=== PATIENT | female | born 1945 | race Caucasian/White ===

== ENCOUNTER 2019-06-15 10:53 | Outpatient (CLI) | payer MEDICARE, OTHER, SELFPAY ==
--- NOTE | 2019-06-15 11:15 | MM_ITS ---
WS: [id number] BILATERAL SCREENING DIGITAL MAMMOGRAM WITH CAD HISTORY: SCREENING COMPARISON: 05/24/2018 Bilateral CC and MLO views submitted. Computer aided detection analyzed. Breast composition: There are scattered areas of fibroglandular density. No suspicious masses, microc alcifications or architectural distortion. Benign calcifications in each breast. MM/[place] [id number] IMPRESSION: BI-RADS: 2-Benign FOLLOW UP: 1 Year Follow-up
== END 2019-06-15 10:54 | disposition home or self-care (01) ==
LOC: RADSHAW 11:03
PROVIDERS: Family Provider Family Medicine; PCP Family Medicine; Visit Provider Family Medicine
DX: Z12.31 Encounter for screening mammogram for malignant neoplasm of breast (principal)
CPT/HCPCS: 77067

== ENCOUNTER 2019-09-15 13:48 | Emergency (ER) | payer MEDICARE, OTHER, SELFPAY ==
[2019-09-15 14:00] VITALS: BP 146/78; PULSE 79; RESP 14; TEMP 36.9; O2SAT 96; BMI 26.7
--- NOTE | 2019-09-15 14:29 | XRR_ITS ---
PROCEDURE INFORMATION: Exam: XR Left Ribs with PA Chest, 3 Views Exam date and time: 09/15/2019 2:30 PM Age: 74 years old Clinical indication: Injury or trauma; Fall; Initial encounter; Rib area, left side; Blunt trauma; Additional info: Fall, rib pain TECHNIQUE: Imaging protocol: XR Left ribs 3 views with PA chest. COMPARISON: No relevant prior studies available. FINDINGS: Lungs: Unremarkable. No consolidation. Pleural space: Unremarkable. No pleural effusion. No pneumothorax. Heart/Mediastinum: Unremarkable. No cardiomegaly. Vasculature: There is calcified plaque in the thoracic aorta which is tortuous. Bones/joints: There is contour abnormality at the posterolateral aspect of the left 4th through 6th ribs with fracture of unknown chronicity. XR/XR ribs LT mn 3V w CXR1V [id number] IMPRESSION: There is contour abnormality at the posterolateral aspect of the left 4th through 6th ribs with fracture of unknown chronicity.
--- NOTE | 2019-09-15 14:29 | ED_ITS ---
HPI - Fall General: Chief Complaint: Fall Stated Complaint: rib pain left side Time Seen by Provider: 09/15/19 14:23 History of Present Illness: HPI Narrative: Patient is a 74 year old female - she is here today due to left rib pain after a fall three days ago. She slipped on some steps in her utility room and landed on her left side. She hit her head but says that feels fine. She has pain with breathing, but denies shortness of breath and she doesn't have pain with movement. MD complaint: fall Onset (ago): day(s) (2) Fall from: down stairs (#) (2) Fall witnessed: no Place fall occurred: home Loss of consciousness: None Prolonged down time: no Symptoms prior to fall: chest pain Context: tripped/slipped Location of injury: chest Severity: moderate Quality: sharp Associated symptoms-after fall: Denies abdominal pain, chest pain, confusion, difficulty walking, headache(s), hematuria, lightheadedness, neck pain, numbness, short of breath, vertigo or weakness Review of Systems General: Reports: 10 or more systems reviewed and unremarkable except in HPI and below Const: Denies: fever(s), chills or body aches Eyes: Denies: change in vision ENMT: Denies: odynophagia Card: Denies: chest pain or lightheadedness Resp: Reports: pain on inspiration; Denies: dyspnea GI: Denies: abdominal pain : Denies: hematuria Musc: Denies: neck pain, extremity pain or joint pain Neuro: Denies: headache(s), difficulty walking, vertigo or confusion PFS ED PFSH: Social History Smoking and tobacco status: former smoker Physical Exam Const: COMMON NORMALS: no acute distress, average body habitus, patient oriented x3, healthy appearing and alert HENMT: COMMON NORMALS: normocephalic HEAD & SCALP: normal to inspection and normocephalic FACE & SINUS: normal facial exam Eye: GENERAL EYE: appearance normal, both eyes and all related structures Neck/C-Spine: COMMON NORMALS: full ROM, supple and no JVD GENERAL: Yes trachea midline Lymph: LYMPHATIC: no lymphadenopathy noted Chest: CHEST: No localized rib tenderness with anteroposterior compression, No Sternal flail present and Yes tenderness rib (left lateral axiallary line, superior) Resp: COMMON NORMALS: normal respiratory effort, No retractions, No use of accessory muscles, clear to auscultation bilaterally and percussion normal AUSCULTATION: clear to auscultation bilaterally PERCUSSION: percussion normal Cardio: COMMON NORMALS: no JVD, regular rate, regular rhythm and No murmurs present (Cardio) RATE: regular rate RHYTHM: regular rhythm GI: COMMON NORMALS: Normal to inspection, nondistended, normoactive bowel sounds present, Soft to palpation and non-tender PALPATION: Yes Soft to palpation Back/Pelvis: COMMON NORMALS: thoracic and lumbar spine normal to inspection Extremity: COMMON NORMALS: normal to inspection and full ROM Neuro: COMMON NORMALS: patient oriented x3 SENSORIUM/ORIENTATION: Yes alert Skin: COMMON NORMALS: no rashes or lesions noted GENERAL SKIN EXAM: no rashes or lesions noted Course ED course: Patient with rib pain after a fall. No difficulty breathing, but pain with inspiration. CXR without pneumothorax - does show at least 3 left sided rib fractures. Patient healthy at baseline - wishes to go home. Outpatient follow up with PCP. Return precautions discussed. Vital Signs: Vital signs: Vital Signs Temperature 98.5 F 09/15/19 14:00 Pulse Rate 77 09/15/19 15:50 Respiratory Rate 16 09/15/19 15:50 Blood Pressure 125/87 09/15/19 15:50 Pulse Oximetry 96 09/15/19 15:50 MDM - Fall MDM Narrative: Medical decision making narrative: Rib pain, fall, suspect fractures. Rule out pneumothorax, contusion Discharge Plan Discharge Patient Disposition: Home, Self-Care Clinical Impression: Fracture of rib of left side Qualifiers: Encounter type: initial encounter Rib fracture type: multiple ribs Fracture type: closed Qualified Code(s): S22.42XA - Multiple fractures of ribs, left side, initial encounter for closed fracture Condition: Stable Prescriptions: No Action alendronate 70 mg tablet 70 mg PO Q7D RF: 0 Tylenol Extra Strength 500 mg Tablet See Rx Instructions .ROUTE .COMPLEX RF: 0 carvedilol 3.125 mg tablet 6.25 mg PO DAILY RF: 0 rosuvastatin 20 mg tablet 20 mg PO DAILY RF: 0 28 mg iron- 800 mcg Tablet 1 tab PO DAILY RF: 0 Discharge Orders: Discharge Order (Routine); Ordered 09/15/19 Ordered By: Naomie Fraga Referrals: Suellen Galeano MD [Primary Care Provider] - Discharge Diet: Advance as tolerated Discharge Activity: Limit activity as instructed Patient Instructions: Rib Fracture (ED) Activity Restrictions/Additional Instructions: Limit lifting. Make sure to take deep breathes and cough to keep your lungs clear and open. Return to the ED if worsening pain, trouble breathing, feeling short of breath, fever or any other new symptoms. Discharge Date/Time: 09/15/19 15:50 Coding Level of Care Code ED Ornamental Painter for Chg Fwd Exam Comprehensive
[2019-09-15 15:50] VITALS: BP 125/87; PULSE 77; RESP 16; O2SAT 96
== END 2019-09-15 15:50 | disposition home or self-care (01) ==
PROVIDERS: Emergency Provider Emergency Medicine; PCP Family Medicine
DX: S22.42XA Multiple fractures of ribs, left side, initial encounter for closed fracture (principal); W01.198A Fall on same level from slipping, tripping and stumbling with subsequent striking against other object, initial encounter; Z87.891 Personal history of nicotine dependence
CPT/HCPCS: 12345; 71101; 99281; 99282

== ENCOUNTER 2019-12-17 08:47 | Outpatient (CLI) | payer MEDICARE, OTHER, SELFPAY ==
--- NOTE | 2019-12-17 09:14 | XR_ITS ---
WS: [id number] SCREENING DEXA SCAN [employer] CLINICAL INFORMATION: ASYMTOMATIC MENOPAUSAL STATE, AGE RELATED OSTEOPOROSIS WITHO COMPARISON: 018 FINDINGS: The L1-L4 bone mineral density measures 0.830 g/cm2. This corresponds to a T score score of -2.9 and Z score of -1.4. Left femoral neck bone mineral density measures 0.750 g/cm2. This corresponds to a T score of -2.0 an d Z score of -0.4. Right femoral neck bone mineral density measures 0.719 g/cm2. This corresponds to a T score -2.3of an d Z score of -0.7. Mean femoral neck bone mineral density measures 0.734 g/cm2. This corresponds to a T score of -2.2 an d Z score of -0.6. XR/XR DEXA axial skeleton* [id number] IMPRESSION: Osteoporosis Patient's FRAX calculated 10 year probability for major osteoporotic fracture i s 22.4 % and osteoporotic hip fracture is 6.1%.
== END 2019-12-17 08:48 | disposition home or self-care (01) ==
LOC: RADWPI 08:51
PROVIDERS: PCP Family Medicine; Visit Provider Family Medicine
DX: Z78.0 Asymptomatic menopausal state (principal); M81.0 Age-related osteoporosis without current pathological fracture
CPT/HCPCS: 77080

== ENCOUNTER 2020-09-13 11:33 | Emergency (ER) | payer MEDICARE, OTHER, SELFPAY ==
[2020-09-13 11:35] VITALS: BP 187/98; PULSE 75; RESP 16; TEMP 36.6; O2SAT 97; BMI 25.9
--- NOTE | 2020-09-13 11:49 | ED_ITS ---
HPI - Extremity Problem General: Chief complaint: Extremity Problem,Nontraumatic Stated complaint: RIGHT KNEE PAIN Time Seen by Provider: 09/13/20 11:36 Source: patient Mode of arrival: ambulatory Limitations: no limitations History of Present Illness: HPI Narrative: Patient is a 75-year-old female with a history of osteoporosis and hypertension who [facility] with right knee pain and swelling of 1 weeks duration. Patient states that she woke up 7 days ago the pain, started in the right popliteal fossa and then gradually radiated to the anterior part of her knee and she has significant swelling of the knee. She denies any trauma to the knee. She has been managing it with ice and [id number] analgesics. Because her symptoms are not getting any better she is here to be evaluated. MD Complaint: joint swelling and joint pain Onset (ago): week(s) (1) Pain Consistency: constant Location: right and knee Quality: aching Radiation: proximal Relieving factors: nothing Exacerbating factors: range of motion and weight bearing Associated symptoms: Reports arthralgias; Deny chest pain, fever(s), myalgias, rash or short of breath Review of Systems General: Reports: 10 or more systems reviewed and unremarkable except in HPI and below Const: Denies: fever(s) Card: Denies: chest pain Skin/Breast: Denies: rash PFS ED PFSH: Social History Smoking and tobacco status: former smoker Physical Exam Const: COMMON NORMALS: no acute distress, average body habitus, patient oriented x3, no limitations, healthy appearing, alert and well nourished Neck/C-Spine: COMMON NORMALS: no JVD Resp: COMMON NORMALS: normal respiratory effort, No retractions, No use of accessory muscles, clear to auscultation bilaterally and percussion normal AUSCULTATION: clear to auscultation bilaterally PERCUSSION: percussion normal Cardio: COMMON NORMALS: no JVD, regular rate, regular rhythm, S1 normal heart sound present, S2 normal heart sound present, No gallops present (Cardio), No clicks present (Cardio), No murmurs present (Cardio), No rub (Cardio) and Peripheral pulses 2+ throughout RATE: regular rate RHYTHM: regular rhythm HEART SOUNDS: S1 normal heart sound present and S2 normal heart sound present PERIPHERAL PULSES: Peripheral pulses 2+ throughout GI: COMMON NORMALS: Normal to inspection, nondistended, normoactive bowel sounds present, Soft to palpation, non-tender, No hepatosplenomegaly present, no masses and no bruits PALPATION: Yes Soft to palpation and Yes No hepatosplenomegaly present Extremity: COMMON NORMALS: normal to inspection, full ROM, capillary refill normal, no calf tenderness and no pedal edema RIGHT LOWER EXTREMITY: Yes knee joint Right knee: Yes inspection (Obvious swelling to the superior lateral portion of the knee), Yes palpation (Right knee effusion noted, mildly tender. Mild warmth, no erythema), Yes ROM (Extension of the knee limited) and Yes neurovascular exam (Intact) Neuro: COMMON NORMALS: patient oriented x3 SENSORIUM/ORIENTATION: Yes alert Procedures Bursa Procedures Time Out Performed: Yes Side of body: right Site of Procedure: other (suprapatellar) XRAY Obtained: normal Antisepsis Used: Povidone-Iodine1% Local Anesthetic: lidocaine 1% Amount of anesthesia used (mL): 2 Fluid obtained (mL): 44 Fluid Type: clear Medication Injected: Methylprednisolone Acetate Amount of medication used (mg): 40 Lidocaine Added to Medication: Yes Patient Tolerated Procedure: well Complications: none Course Vital Signs: Vital signs: Vital Signs Temperature 98.0 F 09/13/20 12:52 Pulse Rate 69 09/13/20 12:52 Respiratory Rate 18 09/13/20 12:52 Blood Pressure 156/87 09/13/20 12:52 Pulse Oximetry 94 09/13/20 12:52 MDM - Extremity (Nontraumatic) MDM Narrative: Medical decision making narrative: 75-year-old female patient who presents to the emergency department with symptoms consistent with right suprapatellar bursitis. X-ray was negative for acute findings, 44 ml of serous fluid was drained from the supra patella bursa and she was given none injection of Depo-Medrol and lidocaine into the bursa and knee joint. She will follow-up with her primary care provider. Medical Records: Attestation: I reviewed the patient's medical records. Imaging Data^: Xray Ortho: Attestation: I personally reviewed and interpreted this imaging study as follows: Radiologist's impression: [facility] [address], [place] [address]TWze ReportSigned Patient: Sandra Rivas #: [id number]: [id number]#:[id number]/Sex: 75 / FADM Date: 09/13/20Loc: ERRoom/Bed:Attending Dr: Ordering Provider/Ordering MD: Ricky Matos MD, [facility] [place] Date of Service: 09/13/20 Procedure(s): XR knee RT 3V* [id number] Accession Number(s): [id number] Report Number: [id number] PROCEDURE INFORMATION: Exam: XR Right Knee Exam date and time: 09/13/2020 11:52 AM Age: 75 years old Clinical indication: Pain; Knee; Right; Additional info: Knee pain and swelling TECHNIQUE: Imaging protocol: XR Right knee. Views: 3 views. COMPARISON: No relevant prior studies available. FINDINGS: Bones/joints: Small suprapatellar effusion. Soft tissues: Soft tissue swelling about the knee. XR/XR knee RT 3V* [id number] IMPRESSION: 1. Negative for fracture or dislocation 2. Small suprapatellar effusion. 3. Soft tissue swelling about the knee. Dictated By:Alphonso Prajapati MDSigned By:Alphonso Prajapati MDSigned Date/Time:09/13/20 1223DD/ 1222 Discharge Plan Discharge Patient Disposition: Home Clinical Impression: Suprapatellar bursitis Qualifiers: Laterality: right Qualified Code(s): M70.51 - Other bursitis of knee, right knee Condition: Stable Prescriptions: Continued alendronate 70 mg tablet 70 mg PO Q7D RF: 0 Tylenol Extra Strength 500 mg Tablet See Rx Instructions .ROUTE .COMPLEX RF: 0 carvedilol 3.125 mg tablet 6.25 mg PO DAILY RF: 0 rosuvastatin 20 mg tablet 20 mg PO DAILY RF: 0 28 mg iron- 800 mcg Tablet 1 tab PO DAILY RF: 0 Discharge Orders: Discharge ED (Routine); Ordered 09/13/20 Ordered By: Ricky Matos Referrals: Suellen Galeano MD [Primary Care Provider] - 1-3 days Discharge Diet: Usual diet Discharge Activity: Increase activity as tolerated Patient Instructions: Knee Bursitis (ED) Activity Restrictions/Additional Instructions: Return for any new or worsening symptoms. Follow-up with your primary care provider within 3 days. Continue to ice your knee as needed and take Tylenol or ibuprofen as needed. Coding Level of Care Code ED Trestle Mainternance Laborer for Maki Fwd Exam Detailed
[2020-09-13 12:06] VITALS: BP 151/85; PULSE 70; RESP 16; O2SAT 96
[2020-09-13 12:52] VITALS: BP 156/87; PULSE 69; RESP 18; TEMP 36.7; O2SAT 94
[2020-09-13 14:15] LABS: Crystals, Fluid See Path Consult
== END 2020-09-13 12:52 | disposition home or self-care (01) ==
PROVIDERS: Emergency Provider Family Medicine; PCP Family Medicine
DX: M70.51 Other bursitis of knee, right knee (principal); Z87.891 Personal history of nicotine dependence
CPT/HCPCS: 20610; 73562; 80500; 99283

== ENCOUNTER 2020-11-14 09:00 | Outpatient (CLI) | payer MEDICARE, OTHER, SELFPAY ==
--- NOTE | 2020-11-14 09:30 | MR_ITS ---
WS: [id number] MRI RIGHT KNEE HISTORY: PAIN IN RIGHT KNEE;SWELLING;PAIN COMPARISON: Radiographs 09/13/2020 Anterior cruciate ligament: Small amount of fluid surrounding the ACL but no tear. Posterior cruciate ligament: Intact. Medial collateral ligament: Increased T2 signal both sides of the MCL. No tear. Posterior lateral corner structures: Mild thickening and increased signal in the proximal popliteus t endon. The remaining structures are negative. Medial menisci: Blunting of the free edge of the posterior horn. Anterior horn is normal. Lateral meniscus: Intact. Normal signal, size and shape. Extensor mechanism: Distal quadriceps tendon and patellar tendons are intact. Fluid and soft tissue: Moderate to large suprapatellar joint effusion. Soft tissue edema surrounding the knee. . Tiny amount of fluid consistent with a Kline's cyst. Osseous and articular structures: Patellofemoral compartment: Mild diffuse thinning of the cartilage. Small amount of subchondral edema in the lateral facet. Medial compartment: Mild narrowing of the medial compartment. Moderate thinning and fissuring of the cartilage along the weightbearing surface. Full-thickness defect in the cartilage of the femoral cond yle. Very small amount of subchondral edema. Lateral compartment: Moderate diffuse thinning and fissuring of the cartilage. Chondral cyst along th e tibial plateau measures 10 mm. MR/MR knee RT wo con* [id number] IMPRESSION: 1. Large suprapatellar joint effusion with a small amount of edema surrounding the knee. 2. Moderate chondromalacia involving the patellofemoral joint and the medial a nd lateral compartments. Largest cartilage defect involves the weightbearing lozada rface of the medial femoral condyle. 3. Mild popliteus tendinopathy. 4. Mild MCL sprain. 5. Suspect tear involving the free edge of the posterior horn medial meniscus.
== END 2020-11-14 09:01 | disposition home or self-care (01) ==
LOC: RADSHAW 09:07
PROVIDERS: PCP Family Medicine; Visit Provider Family Medicine
DX: M25.561 Pain in right knee (principal); M79.89 Other specified soft tissue disorders; M25.461 Effusion, right knee; S83.411A Sprain of medial collateral ligament of right knee, initial encounter; X58.XXXA Exposure to other specified factors, initial encounter
CPT/HCPCS: 73721

== ENCOUNTER 2020-12-20 11:48 | Emergency (ER) | payer MEDICARE, OTHER, SELFPAY ==
--- NOTE | 2020-12-20 11:55 | ED_ITS ---
HPI - General Adult General: Chief complaint: Extremity Problem,Nontraumatic Stated complaint: RIGHT KNEE PAIN Time Seen by Provider: 12/20/20 11:50 History of Present Illness: HPI narrative: 75F w/ hx of chronic R knee swelling presenting for worsening swelling. Patient was recentyl seen by DR. Marie and was told that she needs a knee surgery. Patient requests for a second opinion. Patient reports that she is very active on her knees (including daily activities in gardening and mowing). She has tried brace/topical medicine without any improvement. Denies any fever/chill, IVDU, hx of knee infections, or pain with knee movement. Onset:Chronic Duration:Since july Location:R knee Severity:mild Review of Systems Narrative: Constitutional: No fever, no chills. HEENT: No vision changes CV: No chest pain, no palpitations PULM: no cough, no dyspnea. GI: No abdominal pain, no N/V/D. : No dysuria MSKEL: No muscle pain, +R knee swelling and decreased ROM SKIN: No new rashes, no lesions. NEURO: No headache, no focal weakness. HEME: No visible bruises PSYCH: Normal mood PFSH ED PFSH: Social History Smoking and tobacco status: former smoker Physical Exam Narrative: EXAM NARRATIVE: Head: Atraumatic Eyes: PERRL, conjunctiva without injection ENT: Mucous membrane moist NECK: Supple, ROM intact LUNGS: LCTAB, no crackles/rhonchi CV: RRR ABDOMEN: Soft, nontender in all quadrants EXTREMITY: Normal ROM of the R knee, +mild R knee swelling without any overlying erythema/warmth/tenderness to palpation. +able to bear weight over the R knee SKIN: No rash or erythema NEURO: Awake and alert, no focal motor deficits PSYCH: Normal mood and affect Course Vital Signs: Vital signs: Vital Signs Temperature 97.2 F L 12/20/20 11:56 Pulse Rate 67 12/20/20 12:34 Respiratory Rate 20 H 12/20/20 12:34 Blood Pressure 125/82 12/20/20 12:34 Pulse Oximetry 96 12/20/20 12:34 MDM - General Adult MDM Narrative: Medical decision making narrative: 75F presenting to the ED for evaluation for ongoing R knee swelling. No suspicion for septic joint, DVT, or acute injuries or fracture. XR confirmed chronic changes. Given follow up with orthopedics and new PCP as patient is not happy with existing provider. Disposition: Discharge. Patient given SRP for any worsening pain, swelling, fever/chill, decreased ROM or any new or concerning issues. Imaging Data^: Other Xray: Radiologist's impression: [address] [address]MIdp ReportSigned Patient: Sandra Rivas #: [id number]: [id number]#:[id number]/Sex: 75 / FADM Date: 12/20/20Loc: ERRoom/Bed:Attending Dr: Ordering Provider/Ordering MD: Diaz Bennett MD Date of Service: 12/20/20 Procedure(s): XR knee RT 3V* [id number] Accession Number(s): [id number] Report Number: [id number] PROCEDURE INFORMATION: Exam: XR Right Knee Exam date and time: 12/20/2020 11:54 AM Age: 75 years old Clinical indication: Pain; Knee; Right; Additional info: R knee pain TECHNIQUE: Imaging protocol: XR Right knee. Views: 3 views. COMPARISON: September 13, 2020, images requested but only report available at this time. FINDINGS: Bones/joints: Bones intact and normally aligned. Joint space preserved. Small suprapatellar effusion, also present previously. Soft tissues: Normal. XR/XR knee RT 3V* [id number] IMPRESSION: 1. No fracture or dislocation. 2. Small suprapatellar effusion, also described previously. Dictated By:Francesco Farrell MDSigned By:Francesco Farrell MDSigned Date/Time:12/20/20 1321DD/ 1319 Discharge Plan Discharge Patient Disposition: Home Clinical Impression: Knee swelling Condition: Stable Prescriptions: No Action alendronate 70 mg tablet 70 mg PO Q7D RF: 0 Tylenol Extra Strength 500 mg Tablet See Rx Instructions .ROUTE .COMPLEX RF: 0 carvedilol 3.125 mg tablet 6.25 mg PO DAILY RF: 0 rosuvastatin 20 mg tablet 20 mg PO DAILY RF: 0 28 mg iron- 800 mcg Tablet 1 tab PO DAILY RF: 0 Discharge Orders: Discharge ED (Routine); Ordered 12/20/20 Ordered By: Diaz Bennett Referrals: Suellen Galeano MD [Primary Care Provider] - Discharge Diet: Usual diet Discharge Activity: Resume usual activity Patient Instructions: Knee Effusion (ED) Activity Restrictions/Additional Instructions: We will call you in the next few days for an orthopedic appointment and follow up with a new primary provider. Coding Level of Care Code ED Tennis Centre Manager for Maki Gooden
[2020-12-20 11:56] VITALS: BP 147/87; PULSE 71; RESP 16; TEMP 36.2; O2SAT 97; BMI 27.4
[2020-12-20 12:34] VITALS: BP 125/82; PULSE 67; RESP 20; O2SAT 96
--- NOTE | 2020-12-22 09:58 | DCPLANNER ---
amusement centre manager had message to schedule a follow up appointment for patient with ortho and a new primary care physician. amusement centre manager called the ortho clinic, spoke with Lali, gave clinic patients information. amusement centre manager was told that patients information will be printed and reviewed. Clinic will call patient with appointment information. amusement centre manager called patient to speak with patient about getting established with a primary care physician. Patient stated that she sees Dr. Galeano, and does not want to change at this time.
--- NOTE | 2020-12-23 08:08 | DCPLANNER ---
Patient has a follow up appointment scheduled for Tuesday, January 07, [address] at 9:[address] Deng at [facility]. Clinic will call patient with appointment information.
--- NOTE | 2021-01-23 09:26 | DCPLANNER ---
Patient had a follow up appointment scheduled for 01.07.21 with ortho - patient did attend appointment.
== END 2020-12-20 12:43 | disposition home or self-care (01) ==
PROVIDERS: Emergency Provider Emergency Medicine; PCP Family Medicine
DX: M79.89 Other specified soft tissue disorders (principal); Z87.891 Personal history of nicotine dependence
CPT/HCPCS: 73562; 99282

== ENCOUNTER → 2021-01-07 08:59 | Outpatient (BNVA) | payer MEDICARE, OTHER, SELFPAY | PROVIDERS: PCP Family Medicine; Referring Provider Emergency Medicine; Visit Provider Specialist | DX: M25.569 Pain in unspecified knee (principal); M76.9 Unspecified enthesopathy, lower limb, excluding foot | CPT/HCPCS: 73560; 73565; 80500; 89051 ==

== ENCOUNTER 2022-07-09 16:06 | Emergency (ER) | payer MEDICARE, OTHER, SELFPAY ==
[2022-07-09 16:11] VITALS: BP 142/76; PULSE 66; RESP 18; TEMP 36.8; O2SAT 97
--- NOTE | 2022-07-09 16:21 | XRR_ITS ---
PROCEDURE INFORMATION: Exam: XR Right Ankle Exam date and time: 07/09/2022 4:29 PM Age: 77 years old Clinical indication: Injury or trauma; Fall; Sprain or strain; Ankle; Right; Injury details: Patient slipped and fell when mopping the floor TECHNIQUE: Imaging protocol: Radiologic exam of the right ankle. Views: 3 or more views. COMPARISON: CR XR knees AP WB w RT lmt ORTH 01/07/2021 9:06 AM FINDINGS: Bones/joints: 0.5 cm avulsion bone fragment anterior to the distal talus. A definite donor site is not visualized. The other bones are intact and in normal alignment. Soft tissues: Circumferential soft tissue swelling. XR/XR ankle RT min 3V* [id number] IMPRESSION: 1. Acute avulsion fracture anterior to the talus. A donor site is not visualized but is most likely the talus or navicular. This can be further evaluated with CT imaging.
--- NOTE | 2022-07-09 17:09 | W.ED.LOWEXIN ---
HPI - Extremity Injury (Lower) General: Chief Complaint: Fall Stated Complaint: right foot injury Time Seen by Provider: 07/09/22 17:08 Source: patient Mode of arrival: ambulatory Limitations: no limitations History of Present Illness: Patient is a very nice 77-year-old female who presents to ED today for evaluation of a right ankle injury that she sustained several days ago after a slip and twisting injury. Patient states she was at work when she slipped on a wet floor. She states this is not Worker's Comp. She states she has been ambulatory on the extremity since the injury. She has wrapped it with Coban to help with the swelling. complaint: ankle injury Onset (ago): day(s) Injury: Right: ankle Type of Injury: inversion Place: work Severity: moderate Relieving factors: immobilization Exacerbating factors: weight bearing, movement and palpation Context: other (twisting) Associated symptoms: Reports no associated symptoms Other symptoms: none Review of Systems Musc: Reports: extremity pain (R foot), extremity swelling (R foot), joint pain (R ankle) and joint swelling (R ankle); Denies: neck pain or back pain Neuro: Denies: numbness in extremities, weakness in extremities or sensory changes PFSH ED PFSH: Social History Smoking and tobacco status: never smoked Physical Exam Const: COMMON NORMALS: no acute distress, average body habitus, patient oriented x3, no limitations, healthy appearing, alert and well nourished GENERAL APPEARANCE: cooperative ORIENTATION/CONSCIOUSNESS: Yes awake, Yes oriented to person, Yes oriented to place and Yes oriented to time Extremity: COMMON NORMALS: capillary refill normal and no pedal edema GENERAL: Yes normal exam except as noted RIGHT LOWER EXTREMITY: Yes foot & digits and Yes foot & digits OTHER: TTP and swelling noted to lateral R ankle; mild tenderness to proximal dorsal foot; pain with foot inversion; NV intact Neuro: COMMON NORMALS: patient oriented x3, moves all extremities, no focal motor deficits and no sensory deficits noted SENSORIUM/ORIENTATION: Yes alert, Yes oriented to person, Yes oriented to place and Yes oriented to time Skin: NARRATIVE SKIN EXAM: small amount of ecchymosis to right lateral foot; otherwise normal skin exam Course Vital Signs: Vital signs: Vital Signs Temperature 98.3 F 03/10/23 16:11 Pulse Rate 66 07/09/22 16:11 Respiratory Rate 18 07/09/22 16:11 Blood Pressure 142/76 07/09/22 16:11 Pulse Oximetry 97 07/09/22 16:11 Oxygen Delivery Me thod 07/09/22 16:11 MDM - Extremity Injury (Lower) Medical Decision Making Patient has an acute avulsion fracture seen best on her lateral XR. Donor site not completely clear but radiologist thought it could be from the talus or navicular. Patient adamantly refuses a splint or crutches stating she has been walking on the foot over the past several days. She requests an BRANDY wrap. Referral to case management placed for follow-up with orthopedics/podiatry. Lab Data Radiology Impressions Ankle X-Ray 07/09/22 16:21 IMPRESSION: 1. Acute avulsion fracture anterior to the talus. A donor site is not visualized but is most likely the talus or navicular. This can be further evaluated with CT imaging. Discharge Plan Discharge Patient Disposition: Home Clinical Impression: Fracture of right foot Qualifiers: Encounter type: initial encounter Fracture type: closed Qualified Code(s): S92.901A - Unspecified fracture of right foot, initial encounter for closed fracture Condition: Stable Prescriptions: No Action meloxicam [Mobic] 15 mg tablet 15 mg PO DAILY Qty: 30 0RF Rx Instructions: TAKE 1 TABLET DAILY alendronate 70 mg tablet 70 mg PO Q7D Tylenol Extra Strength 500 mg Tablet See Rx Instructions .ROUTE .COMPLEX Rx Instructions: PRN carvedilol 3.125 mg tablet 6.25 mg PO DAILY rosuvastatin 20 mg tablet 20 mg PO DAILY 28 mg iron- 800 mcg Tablet 1 tab PO DAILY Discharge Orders: Discharge ED (Routine); Ordered 07/09/22 Ordered By: Marsha Saravia Referrals: Suellen Galeano MD [Primary Care Provider] - Patient Instructions: Foot Fracture in Adults (ED) Activity Restrictions/Additional Instructions: As we discussed case management should contact you early next week to set you up with your follow-up orthopedic/podiatry appointment. Coding Level of Care Code ED [employer] Supervisor for Maki Gooden
--- NOTE | 2022-07-12 09:18 | DCPLANNER ---
Addendum entered by Rabia Almaguer 07/19/22 07:52: Patient had a follow up appointment scheduled with podiatry - patient did attend appointment Addendum entered by Rabia Almaguer 07/12/22 13:49: Patient has a follow up appointment scheduled for Saturday, July 16, 2022 at 12:[address] Morgan at [facility]. Clinic will call patient with appointment information. Original Note: accounting systems manager had message to schedule a follow up appointment for patient with podiatry. accounting systems manager sent patients information to the front office staff at podiatry. Patients information will be printed and reviewed. Clinic will call patient with appointment information.
== END 2022-07-09 17:34 | disposition home or self-care (01) ==
PROVIDERS: Emergency Provider Physician Assistant; PCP Family Medicine
DX: S92.901A Unspecified fracture of right foot, initial encounter for closed fracture (principal); W01.0XXA Fall on same level from slipping, tripping and stumbling without subsequent striking against object, initial encounter
CPT/HCPCS: 73610; 99283

== ENCOUNTER → 2022-07-16 13:01 | Outpatient (BNVA) | payer MEDICARE, OTHER, SELFPAY | PROVIDERS: PCP Family Medicine; Visit Provider Podiatrist Foot & Ankle Surgery | DX: S92.151D Displaced avulsion fracture (chip fracture) of right talus, subsequent encounter for fracture with routine healing (principal); W01.0XXD Fall on same level from slipping, tripping and stumbling without subsequent striking against object, subsequent encounter; Y93.E5 Activity, floor mopping and cleaning; Y99.0 Civilian activity done for income or pay | CPT/HCPCS: 99203 ==

== ENCOUNTER → 2022-08-16 09:56 | Outpatient (BNVA) | payer MEDICARE, OTHER, SELFPAY | PROVIDERS: PCP Family Medicine; Visit Provider Podiatrist Foot & Ankle Surgery | DX: S92.151D Displaced avulsion fracture (chip fracture) of right talus, subsequent encounter for fracture with routine healing (principal); W01.0XXD Fall on same level from slipping, tripping and stumbling without subsequent striking against object, subsequent encounter | CPT/HCPCS: 99213 ==

== ENCOUNTER → 2022-09-14 13:55 | Outpatient (BNVA) | payer MEDICARE, OTHER, SELFPAY | PROVIDERS: PCP Family Medicine; Referring Provider Dermatology; Visit Provider Orthopaedic Surgery | DX: S22.000A Wedge compression fracture of unspecified thoracic vertebra, initial encounter for closed fracture (principal); X58.XXXA Exposure to other specified factors, initial encounter | CPT/HCPCS: 72070; 72110; 99204 ==

== ENCOUNTER → 2022-09-20 07:51 | Outpatient (BNVA) | payer MEDICARE, OTHER, SELFPAY | PROVIDERS: PCP Family Medicine; Referring Provider Family Medicine; Visit Provider Nurse Practitioner Family | DX: C44.612 Basal cell carcinoma of skin of right upper limb, including shoulder (principal); L82.0 Inflamed seborrheic keratosis; L57.0 Actinic keratosis; L57.8 Other skin changes due to chronic exposure to nonionizing radiation; L85.3 Xerosis cutis; L85.0 Acquired ichthyosis; L81.4 Other melanin hyperpigmentation; D22.5 Melanocytic nevi of trunk | CPT/HCPCS: 11102; 17000; 17003; 17110; 99204 ==

== ENCOUNTER 2022-10-01 15:17 | Outpatient (CLI) | payer MEDICARE, OTHER, SELFPAY ==
--- NOTE | 2022-10-01 15:15 | MR_ITS ---
WS: [id number] MRI THORACIC SPINE WITHOUT CONTRAST TECHNIQUE: Sagittal T1, T2 and STIR imaging. Axial T2 imaging. Noncontrast imaging obtained. CLINICAL INFORMATION: hx of compression fractures, mid back pain COMPARISON: None. FINDINGS: Mild thoracic curve. Mild thoracic kyphosis. Chronic anterior wedging in the mid thoracic spine. No a cute compression fractures. Endplate Schmorl's nodes in the mid thoracic spine. Anterior wedging wors e at T7. Cord signal is normal. No high-grade central canal stenosis. Moderate facet arthropathy lowe r thoracic spine. Normal caliber thoracic aorta. Mild central canal stenosis in the cervical spine nuclear waste management engineer imaging at C3- C6. MR/MR thoracic spin wo con* [id number] IMPRESSION: 1. Mild thoracic curve. Mild thoracic kyphosis. 2. No acute compression fractures. 3. Chronic anterior wedging at T7.
== END 2022-10-01 15:18 | disposition home or self-care (01) ==
LOC: RAD 15:23
PROVIDERS: PCP Family Medicine; Visit Provider Orthopaedic Surgery
DX: M40.204 Unspecified kyphosis, thoracic region (principal); M48.54XA Collapsed vertebra, not elsewhere classified, thoracic region, initial encounter for fracture; Z87.81 Personal history of (healed) traumatic fracture
CPT/HCPCS: 72146

== ENCOUNTER → 2022-10-19 07:53 | Outpatient (BNVA) | payer MEDICARE, OTHER, SELFPAY | PROVIDERS: PCP Family Medicine; Visit Provider Dermatology | DX: C44.612 Basal cell carcinoma of skin of right upper limb, including shoulder (principal) | CPT/HCPCS: 12034; 17313; 99214 ==

== ENCOUNTER 2023-01-30 10:16 | Emergency (ER) | payer MEDICARE, OTHER, SELFPAY ==
[2023-01-30 10:25] VITALS: BP 156/85; PULSE 71; RESP 16; TEMP 36.4; O2SAT 96
--- NOTE | 2023-01-30 10:32 | XRR_ITS ---
PROCEDURE INFORMATION: Exam: XR Left Ribs with PA Chest Exam date and time: 01/30/2023 10:39 AM Age: 77 years old Clinical indication: Injury or trauma; Fall; Rib area, left side; Blunt trauma TECHNIQUE: Imaging protocol: Radiologic exam of the left ribs with PA chest. Views: 3 views COMPARISON: CR (CHEST, ) 09/15/2019 3:03 PM FINDINGS: Lungs: Calcified granuloma right upper lung. Otherwise, clear lungs. Pleural spaces: Unremarkable. No pleural effusion. No pneumothorax. Heart/Mediastinum: Unremarkable. No cardiomegaly. Bones/joints: Mild scoliosis. Old left rib fractures. No obvious acute left rib abnormality. XR/XR ribs LT mn 3V w CXR1V [id number] IMPRESSION: No acute findings.
--- NOTE | 2023-01-30 10:32 | ED_ITS ---
HPI - Extremity Problem General: Chief complaint: Extremity Problem,Nontraumatic Stated complaint: rib pain Time Seen by Provider: 01/30/23 10:24 Source: patient Mode of arrival: ambulatory Limitations: no limitations History of Present Illness: Patient is a 77-year-old female who presents to the ED with left rib pain. Patient states that she was lifting her bed on Tuesday. States that she woke up Tuesday morning with left sided rib pain. States that she took Tylenol but unable to tell if it helped or not. States pain has not went away this AM. 3/10 on pain scale. Denies any other complaints at this time. Onset (ago): day(s) (2) Pain Consistency: constant and intermittent Location: left (Rib area) Severity scale (1-10): 3 Associated symptoms: Deny chest pain or fever(s) Review of Systems Const: Denies: fever(s) or chills Eyes: Denies: change in vision or blurry vision ENMT: Denies: throat pain Card: Denies: chest pain or palpitations Resp: Denies: dyspnea or productive cough GI: Denies: abdominal pain Musc: Reports: other (Left Rib pain) Neuro: Denies: headache(s) PFSH ED PFSH: Social History Smoking and tobacco status: never smoked Physical Exam Const: COMMON NORMALS: no acute distress, patient oriented x3 and alert HENMT: COMMON NORMALS: normocephalic HEAD & SCALP: normocephalic Eye: COMMON NORMALS: Equal, round and reactive pupils present and EOMs intact bilaterally PUPIL: Yes Equal, round and reactive pupils present Neck/C-Spine: COMMON NORMALS: full ROM Chest: CHEST: Yes Symmetrical chest wall rise OTHER: Point tender over left chest wall reproduces her pain Resp: COMMON NORMALS: normal respiratory effort and clear to auscultation bilaterally EFFORT & INSPECTION: Yes symmetric chest movement AUSCULTATION: clear to auscultation bilaterally Cardio: COMMON NORMALS: S1 normal heart sound present HEART SOUNDS: S1 normal heart sound present GI: COMMON NORMALS: Normal to inspection, nondistended, normoactive bowel sounds present Back/Pelvis: COMMON NORMALS: thoracic and lumbar spine normal to inspection OTHER: Pain on palpation to left rib area. Extremity: COMMON NORMALS: normal to inspection Neuro: COMMON NORMALS: patient oriented x3 SENSORIUM/ORIENTATION: Yes alert Course Vital Signs: Vital signs: Vital Signs Temperature 97.6 F 01/30/23 10:25 Pulse Rate 71 01/30/23 10:25 Respiratory Rate 16 01/30/23 10:25 Blood Pressure 156/85 01/30/23 10:25 Pulse Oximetry 96 01/30/23 10:25 Oxygen Delivery Me thod Room Air 01/30/23 10:25 MDM - Extremity (Nontraumatic) Medical Decision Making Patient presents here with chest wall pain likely from lifting her meds she is point tender on exam x-rays normal we will place her on Naprosyn she is to follow-up with PCP and return if worsening. Medical Records I reviewed the patient's medical records. XR interpretation done by ED provider, pending radiology final review ED provider radiology interpretation(s): xr ribs: no fx no pneumothorax Discharge Plan Discharge Patient Disposition: Home Clinical Impression: Chest wall pain Condition: Stable Prescriptions: New Naprosyn 500 mg tablet 500 mg PO BID PRN (Reason: pain) Qty: 20 0RF No Action meloxicam [Mobic] 15 mg tablet 15 mg PO DAILY Qty: 30 0RF Rx Instructions: TAKE 1 TABLET DAILY cyclobenzaprine 10 mg tablet 10 mg PO TID PRN (Reason: muscle spasm) Qty: 90 0RF alendronate 70 mg tablet 70 mg PO Q7D Tylenol Extra Strength 500 mg Tablet See Rx Instructions .ROUTE .COMPLEX Rx Instructions: PRN carvedilol 3.125 mg tablet 6.25 mg PO DAILY rosuvastatin 20 mg tablet 20 mg PO DAILY 28 mg iron- 800 mcg Tablet 1 tab PO DAILY Discharge Orders: Discharge ED (Routine); Ordered 01/30/23 Ordered By: Bhavin Cortes Referrals: Suellen Galeano MD [Primary Care Provider] - 1-3 days Discharge Diet: Advance as tolerated Discharge Activity: Resume usual activity Patient Instructions: Chest Wall Pain (ED) Coding Level of Care Code ED Weatherization And Housing Inspector for Maki Gooden
[2023-01-30] MEDS: naproxen 500 mg Tablet PO (10:38)
[2023-01-30 11:00] VITALS: PULSE 88
[2023-01-30 11:01] VITALS: BP 156/85; PULSE 71; RESP 16; TEMP 36.4; O2SAT 96
== END 2023-01-30 11:01 | disposition home or self-care (01) ==
PROVIDERS: Emergency Provider Emergency Medicine; PCP Family Medicine
DX: R07.89 Other chest pain (principal)
CPT/HCPCS: 71101; 99283

== ENCOUNTER 2023-02-09 14:09 | Outpatient (CLI) | payer MEDICARE, OTHER, SELFPAY ==
--- NOTE | 2023-02-09 14:17 | XR_ITS ---
WS: [id number] DEXA (DUAL ENERGY X-RAY ABSORPTIOMETRY) Bone mineral density was performed using a [employer] machine. HISTORY: ASYMPTOMATIC MENOPAUSAL STATE COMPARISON: 12/17/2019 Lumbar spine BMD (L1-L4): 0.901 g/cm2 T score: -2.3 Z score: -0.3 Total hip BMD: Left: 0.701 g/cm2. T score: -2.4 Z score: -0.3 Right: 0.664 g/cm2. T score: -2.7 Z score: -0.6 10 year probability of a major osteoporotic fracture is 31.3%. Compared to the prior study from 12/17/2019. Lumbar spine bone mineral density has increased by 8.6%. Bilateral hips bone mineral density has decreased by 7.1%. IMPRESSION: OSTEOPOROSIS based upon the WHO classification for females. Significant increase in bone mineral density within the lumbar spine. Significant decrease in bone mineral density within the hips.
== END 2023-02-09 14:10 | disposition home or self-care (01) ==
PROVIDERS: PCP Family Medicine; Visit Provider Family Medicine
DX: M81.0 Age-related osteoporosis without current pathological fracture (principal); Z78.0 Asymptomatic menopausal state
CPT/HCPCS: 77080

== ENCOUNTER 2024-01-18 19:54 | Emergency (ER) | payer MEDICARE, OTHER, SELFPAY ==
[2024-01-18 20:11] VITALS: BP 185/83; PULSE 74; RESP 16; TEMP 36.8; O2SAT 97; BMI 22.8
--- NOTE | 2024-01-18 20:27 | CTR_ITS ---
PROCEDURE INFORMATION: Exam: CT Head Without Contrast Exam date and time: 01/18/2024 8:45 PM Age: 78 years old Clinical indication: Injury or trauma; Fall; Other: Pain TECHNIQUE: Imaging protocol: Computed tomography of the head without contrast. Radiation optimization: All CT scans at this facility use at least one of these dose optimization techniques: automated exposure control; mA and/or kV adjustment per patient size (includes targeted exams where dose is matched to clinical indication); or iterative reconstruction. COMPARISON: No relevant prior studies available. RADIATION DOSE METRICS: Total DLP (mGy-cm): 1078 FINDINGS: Brain: Normal. No hemorrhage. Unremarkable white matter. No mass effect. Cerebral ventricles: No ventriculomegaly. Paranasal sinuses: Right maxillary, sphenoid, and bilateral ethmoid hemosinus. Mastoid air cells: Visualized mastoid air cells are well aerated. Bones: Partially included right-sided zygomaticomaxillary complex fractures, detailed in better evaluated on concomitant CT maxillofacial. Soft tissues: Unremarkable. CT/CT head wo con* [id number] IMPRESSION: 1. No acute intracranial abnormality. 2. Right-sided zygomaticomaxillary complex fracture detailed and better evaluated on concomitant CT maxillofacial.
--- NOTE | 2024-01-18 20:35 | CTR_ITS ---
PROCEDURE INFORMATION: Exam: CT Maxillofacial Without Contrast Exam date and time: 01/18/2024 8:48 PM Age: 78 years old Clinical indication: Injury or trauma; Additional info: Fall/right face pain/heard a pop TECHNIQUE: Imaging protocol: Computed tomography of the face without contrast. Radiation optimization: All CT scans at this facility use at least one of these dose optimization techniques: automated exposure control; mA and/or kV adjustment per patient size (includes targeted exams where dose is matched to clinical indication); or iterative reconstruction. COMPARISON: CT head wo con* [id number] 01/18/2024 8:45 PM RADIATION DOSE METRICS: Total DLP (mGy-cm): 635 FINDINGS: Orbital cavities: Right-sided cataract surgery. Minimally displaced fracture of the right lateral orbital wall and orbital floor. There is no herniation of the orbital contents through the orbital floor. Mild dehiscence of the right lamina papyracea. Paranasal sinuses: Comminuted fractures of the right anterior and posterolateral maxillary nash with extension into the inferior orbital foramen. Right maxillary, sphenoid, and bilateral ethmoid hemosinus. Mucosal thickening of the left maxillary and sphenoid sinuses. Bones: Mildly comminuted fracture of the right zygomatic process. Severe cervical spondylosis. Reversal of the normal cervical lordosis. Soft tissues: Unremarkable. CT/CT facial bones wo con* [id number] IMPRESSION: Right-sided zygomaticomaxillary complex fracture with preservation of the orbital contents, detailed above.
--- NOTE | 2024-01-18 20:36 | ED_ITS ---
HPI - Fall General: Chief Complaint: Fall Stated Complaint: Fall injured face, neck, right arm/leg and Time Seen by Provider: 01/18/24 20:30 Source: patient Mode of arrival: ambulatory Limitations: no limitations History of Present Illness: Patient is a 78-year-old female presenting to the emergency department due to a fall about an hour or so prior to arrival. She states that she was walking a dog and it pulled her to the ground, she injured her right side but her only complaint primarily and what she wants evaluated is pain to her right cheekbone. She states she heard a pop. She is not on blood thinner. Did not lose consciousness. States that she did require help to get up off the ground. She [place] [address] [place] and [address] all the way down here to get evaluated instead of going to [facility] that was next to where she lives. She is requesting Tylenol at this time. MD complaint: fall Onset (ago): hour(s) Fall from: standing Fall witnessed: yes, by bystander Place fall occurred: street Loss of consciousness: None Prolonged down time: no Symptoms prior to fall: none Context: other (Pulled down by dog on a leash) Location of injury: face Associated symptoms-after fall: Denies abdominal pain, chest pain, headache(s), lightheadedness or neck pain Related Data Home Medications Medication Instructions Recorded Confirmed acetaminophen 500 mg tablet See Rx Instructions .Route .COMPLEX 09/15/19 10/19/22 (Tylenol Extra Strength) alendronate 70 mg tablet 70 mg PO Q7D 09/15/19 10/19/22 carvedilol 3.125 mg tablet 6.25 mg PO DAILY 09/15/19 10/19/22 vit no.95-ferrous 1 tab PO DAILY 09/15/19 10/19/22 fumarate 28 mg-folic acid 800 mcg tablet () rosuvastatin 20 mg tablet 20 mg PO DAILY 09/15/19 10/19/22 Previous Rx's Medication Instructions Recorded meloxicam 15 mg tablet (Mobic) 15 mg PO DAILY #30 tabs 01/07/21 cyclobenzaprine 10 mg tablet 10 mg PO TID PRN muscle spasm #90 09/14/22 tabs naproxen 500 mg tablet (Naprosyn) 500 mg PO BID PRN pain #20 tabs 01/30/23 prednisone 20 mg tablet 60 mg (3 x 20 mg) PO ONCE 5 days 01/18/24 #15 tabs Allergies Allergy/AdvReac Type Severity Reaction Status Date / Time No Known Allergies Allergy Verified 01/30/23 10:29 Review of Systems General: Reports: 10 or more systems reviewed and unremarkable except in HPI and below Const: Reports: other (Fall); Denies: fever(s), chills or fatigue Eyes: Denies: change in vision ENMT: Reports: sinus pain; Denies: throat pain, ear or mastoid pain or nasal discharge Card: Denies: chest pain, palpitations, swelling of feet/ankles or lightheadedness Resp: Denies: dyspnea, productive cough or wheezing GI: Denies: abdominal pain, nausea, vomiting, diarrhea or constipation : Denies: flank pain, difficulty voiding, dysuria or urinary frequency Musc: Denies: neck pain, back pain or joint pain Skin/Breast: Denies: rash Neuro: Denies: headache(s), numbness in extremities or weakness in extremities PFSH ED PFSH: Social History Smoking and tobacco/nicotine status: never used tobacco/nicotine Physical Exam Const: COMMON NORMALS: no acute distress, patient oriented x3, no limitations, healthy appearing, alert and well nourished HENMT: OTHER: Some bruising noted to the zygomatic arch of the patient's right face. Eye: COMMON NORMALS: Equal, round and reactive pupils present, EOMs intact bilaterally and conjunctivae normal CONJUNCTIVA: Yes conjunctivae normal PUPIL: Yes Equal, round and reactive pupils present Neck/C-Spine: COMMON NORMALS: full ROM, supple and no meningeal signs Resp: COMMON NORMALS: normal respiratory effort, No use of accessory muscles and clear to auscultation bilaterally AUSCULTATION: clear to auscultation bilaterally Cardio: COMMON NORMALS: regular rate and regular rhythm RATE: regular rate RHYTHM: regular rhythm Extremity: COMMON NORMALS: normal to inspection, full ROM, capillary refill normal, no joint enlargement and no clubbing, cyanosis or edema Neuro: COMMON NORMALS: patient oriented x3, moves all extremities, no focal motor deficits and no sensory deficits noted SENSORIUM/ORIENTATION: Yes alert MENINGEAL SIGNS: Yes no meningeal signs Skin: NARRATIVE SKIN EXAM: Small superficial abrasion to patient's right anterior knee Course Vital Signs: Vital signs: Vital Signs Temperature 98.3 F 01/18/24 20:11 Pulse Rate 74 01/18/24 20:11 Respiratory Rate 16 01/18/24 20:11 Blood Pressure 185/83 01/18/24 20:11 Pulse Oximetry 97 01/18/24 20:11 Oxygen Delivery Me thod Room Air 01/18/24 20:11 MDM - Fall Medical Decision Making Patient had fallen about an hour or so prior to presenting to the emergency department, main complaint is pain to the right side of her face where she hit the ground. She did not lose consciousness and is not on blood thinner. Vitals are stable on arrival. Does report improvement of pain after receiving Tylenol. CT of facial bones showed right sided facial fracture with no encroachment on the orbital bones, and will refer the patient to ear nose throat for further evaluation. She is given a steroid shot here in the emergency department and prescription sent to pharmacy. Also encouraged to continue Tylenol at home. Reasons to return were thoroughly discussed. This patient's care discussed with Dr. Zurita who agrees with disposition at this time. Lab Data Radiology Impressions Head CT 01/18/24 20:27 IMPRESSION: 1. No acute intracranial abnormality. 2. Right-sided zygomaticomaxillary complex fracture detailed and better evaluated on concomitant CT maxillofacial. Face CT 01/18/24 20:35 IMPRESSION: Right-sided zygomaticomaxillary complex fracture with preservation of the orbital contents, detailed above. All radiology interpretation(s) finalized by discharge Discharge Plan Discharge Patient Disposition: Home Clinical Impression: Facial fracture Condition: Stable Prescriptions: New prednisone 20 mg tablet 60 mg PO ONCE 5 Days Qty: 15 0RF No Action meloxicam [Mobic] 15 mg tablet 15 mg PO DAILY Qty: 30 0RF Rx Instructions: TAKE 1 TABLET DAILY cyclobenzaprine 10 mg tablet 10 mg PO TID PRN (Reason: muscle spasm) Qty: 90 0RF alendronate 70 mg tablet 70 mg PO Q7D Tylenol Extra Strength 500 mg Tablet See Rx Instructions .ROUTE .COMPLEX Rx Instructions: PRN carvedilol 3.125 mg tablet 6.25 mg PO DAILY rosuvastatin 20 mg tablet 20 mg PO DAILY 28 mg iron- 800 mcg Tablet 1 tab PO DAILY Naprosyn 500 mg tablet 500 mg PO BID PRN (Reason: pain) Qty: 20 0RF Discharge Orders: Discharge ED (Routine); Ordered 01/18/24 Ordered By: Warren Mauricio Referrals: Suellen Galeano MD [Primary Care Provider] - Discharge Diet: Usual diet Discharge Activity: Limit activity as instructed Patient Instructions: Facial Fracture (ED), Pain Management Activity Restrictions/Additional Instructions: Follow-up with ENT as discussed. Take steroids. Apply ice and take Tylenol for added relief. Avoid reinjury. Return with any new or worsening symptoms. Coding Level of Care Code ED Sort Supervisor for Maki Gooden
[2024-01-18] MEDS: acetaminophen 500 mg Tablet 1000 MG PO (21:16)
[2024-01-18] MEDS: dexamethasone 10 mg/mL INJ IM (21:43)
[2024-01-18 22:00] VITALS: BP 163/101; PULSE 86; RESP 16; O2SAT 96
--- NOTE | 2024-01-20 07:22 | DCPLANNER ---
[facility]
== END 2024-01-18 22:01 | disposition home or self-care (01) ==
PROVIDERS: Emergency Provider Physician Assistant; PCP Family Medicine
DX: S02.40EA Zygomatic fracture, right side, initial encounter for closed fracture (principal); S80.211A Abrasion, right knee, initial encounter; W18.39XA Other fall on same level, initial encounter
CPT/HCPCS: 70450; 70486; 96372; 99284; J1100

== ENCOUNTER 2024-11-09 08:09 | Emergency (ER) | payer MEDICARE, OTHER, SELFPAY ==
--- OUTSIDE RECORDS SUMMARY | 2024-11-09 08:20 | XMS_ITS | Clinical Summary ---
Author Organization [employer] [facility] Address [address] Attn: Epic Prelude ADT ADRIENNE VAZQUEZ [id number] Care Team Providers Care School Superintendent Name Role Phone Jessica Christopher MD Primary Care Provider [phone] Social History Tobacco Use Types Packs/Day Years Used Date Smoking Tobacco: Former Cigarettes Q uit: 03/13/1998 Alcohol Use Standard Drinks/Week Comments Not Asked 0 (1 standard drink = 0.6 oz pur e alcohol) Comments Unknown Sex and Gender Information Value Date Recorded Sex Assigned at Not on file Legal Sex Female 4:28 AM [employer] Gender Identity Not on file Sexual Orientation Not on file Plan of Treatment Health Maintenance Due Date Last Done Comments DTAP/TDAP/TD VACCINES (1 - Tdap) 02/19/1964 PNEUMOCOCCAL VACCINE 50+ YEARS (1 of 1 - PCV) 02/19/19 94 ZOSTER VACCINE (1 of 2) 02/19/1994 OSTEOPOROSIS SCREENING 02/19/2009 RSV VACCINE (60+ or ) (1 - 1-dose 75+ series) 02/19/2019 INFLUENZA VACCINE (#1) 2024 Insurance MEDICARE PART A AND B [facility] SU[facility] Care Teams School Superintendent Relationship Specialty Start Date End Date Jessica Christopher MD PCP - General 08/20/04
--- OUTSIDE RECORDS SUMMARY | 2024-11-09 08:20 | XMS_ITS | Patient Health Record ---
Author Organization [facility] Address [facility] [place] [address] Care Team Providers Care Sawsmith Name Role Phone ELIZ MUNOZ Primary Care Provider Unavailabl e AdecandaceWardStu Unavailable [phone] Reason For Referral No Information Medications Medication SIG (Take, Route, Frequency, Duration) Notes Start Date End Date Status Pantoprazole Sodium 40 MG Tablet Delayed Release 1 tablet Orally Once a day Active Coreg 3.125 MG Tablet 1 tablet with food Orally bid; Duration: 30 day(s) Active Crestor 10 MG Tablet 1 tablet Orally qd; Duration: 30 day(s) Active Calcium 1000 mg Tablet Chewable 1 tablet with a meal Orally qd; Duration: 30 day(s) Active Social History Social History Additional Details Category Social Info Options Details Social History Recreational drug use: no Exercise: no Caffeine: yes frequency: 3-4 c ups per day Alcohol no Problems Problem Type SNOMED Code ICD Code Onset Dates Problem Status W/U Status Risk Notes Problem Mixed hyperlipidemia (202993577) Mixed hyperlipidemia (272.2) Active confirmed 2 Problem Benign hypertensive heart disease without congestive heart failure (disorder) (89165545) Benign hypertensive heart disease without heart failure (402.10) Active confirmed 2 Problem Disorder of cardiovascular system (80222715) Unspecified cardiovascular disease (429.2) Active confirmed 2 Problem Thrombophlebitis (41826984) Phlebitis and thrombophlebitis of other site (451.89) Active confirmed Problem Varicose veins of lower extremity (15779721) 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) Active confirmed Problem Abnormal results of cardiovascular function studies (897877155) Abnormal CV Function Study (794.30) Active confirmed Problem Liver function tests abnormal (662064861) Nonspecific abnormal results of liver function study (794.8) Active confirmed Plan Of Treatment No Information Insurance Providers Payer Name Payer Address Payer Phone Subscriber Number Group Number Insured Name Patient Relationship to Insured Coverage Start Date Coverage End Date MEDICARE WPS PART B [address] [address] [place] [address] [id number] Krysta Rivas Self - patient is the insured [employer] [address] [place] [address] [phone] [id number] Krysta Rivas Self - patient is the insured Medical (General) History Medical History History ICD Code Chronic venous insufficiency. a) EVLT right GSV ([employer]) ( 0). b)Large posterior calf varcosities. c) EVLT and FOAM left LSV (04/14/2010). Surgical History Surgery Date(Month/Year) Ingrown nails removed.
--- OUTSIDE RECORDS SUMMARY | 2024-11-09 08:20 | XMS_ITS | Clinical Summary ---
Author Organization [facility] Address [address] [address] Phone Care Team Providers Care Capacity Planning Engineer Name Role Phone Hsu, Mariah [employer]CH[employer]IC Primary Care Provider [phone] Medications alendronate (Fosamax) 70 mg tablet Take 70 mg by mouth 1 (one) time per week. 3 Active carvediloL (Coreg) 3.125 mg tablet Take 6.25 mg by mouth 1 (one) time each day. 4 Active cephalexin (Keflex) 500 mg capsule TAKE 1 CAPSULE BY MOUTH THREE TIMES DAILY FOR 7 DAYS 3 Active doxycycline (Vibramycin) 100 mg capsule TAKE 1 CAPSULE BY MOUTH TWICE DAILY FOR 10 DAYS 4 Active mupirocin (Bactroban) 2 % ointment APPLY TOPICALLY TO THE AFFECTED AREA THREE TIMES DAILY 3 Active rosuvastatin (Crestor) 20 mg tablet Take 20 mg by mouth 1 (one) time each day. 4 Active Active Problems Problem Noted Date Diagnosed Date Acute medial meniscal tear 01/19/2024 Acute urinary tract infection 01/19/2024 Back pain 01/19/2024 Closed fracture of lateral malleolus 01/19/2024 Compression fracture of thoracic vertebra 2023 Disorder of skin of lower extremity 01/19/2024 Fracture of fibula 01/19/2024 Gastroesophageal reflux disease 01/19/2024 Hyperlipidemia 01/19/2024 Hypertension 01/19/2024 Injury of left ankle 01/19/2024 Osteoporosis 01/19/2024 Pneumonia 01/19/2024 Weight loss 01/19/2024 Encounters Date Type Department Care Team Description 10/30/2024 8:45 AM CDT [facility] [address] [place] [id number] Jhonatan Sinha DPM Dermatophytosis of nail (Primary Dx); Atherosclerosis of artery of both lower extremities 08/21/2024 8:00 AM CDT Procedure [facility] [address] [place] [id number] Jhonatan Sinha DPM Dermatophytosis of nail (Primary Dx); Atherosclerosis of artery of both lower extremities from Last 3 Months Social History Tobacco Use Types Packs/Day Years Used Date Smoking Tobacco: Never Smokeless Tobacco: Never Tobacco Cessation:Counseling Given: Not Answered PHQ-2 Answer Date Recorded Patient Health Questionnaire-2 Score 0 08/21/2024 [facility] - Mental Health Answer Date Recorde d Little interest or pleasure in doing things Not at all 08/21/2024 Feeling down, depressed, or hopeless Not at all 08/21/2024 Feeling of Stress Not on file 08/21/2024 Comments Unknown Sex and Gender Information Value Date Recorded Sex Assigned at Not on file Legal Sex Female 12:23 PM CDT Gender Identity Not on file Sexual Orientation Not on file Last Filed Vital Signs Vital Sign Reading Time Taken Comments Blood Pressure 171/88 10/30/2024 8:37 AM CDT Pulse 71 10/30/2024 8:37 AM CDT Temperature 36.6 C (97.8 F) 10/30/2024 8:37 AM CDT Respiratory Rate 19 10/30/2024 8:37 AM CDT Oxygen Saturation 96% 10/30/2024 8:37 AM CDT Inhaled Oxygen Concentration - - Weight 59.9 kg (132 lb) 10/30/2024 8:37 AM CDT Height 160 cm (5' 2.99 ) 10/30/2024 8:37 AM CDT Body Mass Index 23.39 10/30/2024 8:37 AM CDT Plan of Treatment Health Maintenance Due Date Last Done Comments Creatinine Level 1944 Lipid Panel 1944 Potassium Level 1944 MMR Vaccines (1 of 1 - Standard series) 02/19/1945 DTaP,Tdap,and Td Vaccines (1 - Tdap) 02/19/1951 Varicella Vaccines (1 of 2 - 13+ 2-dose series) 02/19/1957 Social Drivers of Health (SDoH) 02/19/1962 Mammogram 1984 Pneumococcal Vaccine: 50+ Years (1 of 1 - PCV) 02/19/1994 Zoster Vaccines (1 of 2) 02/19/1994 Medicare Initial AWV [id number] 05/02/1998 RSV Vaccines (1 - 1-dose 75+ series) 02/19/2019 COVID-19 Vaccine (1 - 2023-2 5 season) 2024 Complete Fall Risk Assessment 10/03/2024, 10/04/2023, 10/04/2023 Influenza Vaccine (#1) 2024 02/03/2024 Depression Screening 08/22/2025 08/21/2024 HIB Vaccines Aged Out No longer eligi ble based on patient's age to complete this topic HPV Vaccines Aged Out No longer eligi ble based on patient's age to complete this topic Hepatitis A Vaccines Aged Out No long er eligible based on patient's age to complete this topic Hepatitis B Vaccines Aged Out No long er eligible based on patient's age to complete this topic IPV Vaccines Aged Out No longer eligi ble based on patient's age to complete this topic Meningococcal B Vaccine Aged Out No l onger eligible based on patient's age to complete this topic Meningococcal Vaccine Aged Out No wendy mela eligible based on patient's age to complete this topic Pneumococcal Vaccine Aged Out No long er eligible based on patient's age to complete this topic Rotavirus Vaccines Aged Out No longer eligible based on patient's age to complete this topic Insurance MEDICARE [facility] [place] [address] Care Teams Capacity Planning Engineer Relationship Specialty Start Date End Date Hsu, ENRICO Lemus [address] [place] [address] PCP - General 10/26/24
[2024-11-09 08:26] VITALS: BP 123/72; PULSE 63; RESP 16; TEMP 36.6; O2SAT 98; BMI 22.4
--- NOTE | 2024-11-09 09:29 | W.ED.FALL ---
HPI - Fall General: Chief Complaint: Fall Stated Complaint: fell on leatha laureano Time Seen by Provider: 11/09/24 08:17 Source: patient Mode of arrival: ambulatory Limitations: no limitations History of Present Illness: Patient is a nice 79-year-old female presents to ED today for evaluation following a fall. Patient states she was walking her dog when the dog saw a rabbit and took off causing her to fall to the ground. Currently physical complaint at time of arrival is right rib pain. She is not complaining of any shortness of breath or difficulty breathing. She has been ambulatory without difficulty or assistance since the fall. She has a mild abrasion to the anterior aspect of her right knee. Last tetanus is unknown. Denies striking her head or LOC. She is not having any neck or back pain. MD complaint: fall Onset (ago): hour(s) Fall from: standing Fall witnessed: no Place fall occurred: home Loss of consciousness: None Prolonged down time: no Symptoms prior to fall: none Context: tripped/slipped Location of injury: chest (R ribs) Associated symptoms-after fall: Reports no associated symptoms and chest pain (R rib pain); Denies abdominal pain, headache(s), hematuria, lightheadedness or neck pain Related Data Home Medications ?Medication ?Instructions ?Recorded ?Confirmed acetaminophen 500 mg tablet See Rx Instructions .Route .COMPLEX 09/15/19 10/19/22 (Tylenol Extra Strength) alendronate 70 mg tablet 70 mg PO Q7D 09/15/19 10/19/22 carvedilol 3.125 mg tablet 6.25 mg PO DAILY 09/15/19 10/19/22 vit no.95-ferrous 1 tab PO DAILY 09/15/19 10/19/22 fumarate 28 mg-folic acid 800 mcg tablet () rosuvastatin 20 mg tablet 20 mg PO DAILY 09/15/19 10/19/22 Previous Rx's ?Medication ?Instructions ?Recorded meloxicam 15 mg tablet (Mobic) 15 mg PO DAILY #30 tabs 01/07/21 cyclobenzaprine 10 mg tablet 10 mg PO TID PRN muscle spasm #90 09/14/22 tabs naproxen 500 mg tablet (Naprosyn) 500 mg PO BID PRN pain #20 tabs 01/30/23 Allergies Allergy/AdvReac Type Severity Reaction Status Date / Time No Known Allergies Allergy Verified 01/30/23 10:29 Review of Systems Eyes: Denies: change in vision, blurry vision, photophobia, eye discharge, floaters or seeing flashes ENMT: Denies: throat pain, odynophagia, ear or mastoid pain, ear discharge, nasal discharge, epistaxis or sinus pain Card: Reports: chest pain (R rib pain); Denies: palpitations, lightheadedness, syncope or pre-syncope Resp: Denies: dyspnea or pain on inspiration GI: Denies: abdominal pain : Denies: flank pain or hematuria Musc: Denies: neck pain, back pain, extremity pain or joint pain Skin/Breast: Reports: other (abrasion R knee) Neuro: Denies: headache(s), numbness in extremities, weakness in extremities, sensory changes or dizziness PFSH ED PFSH: Social History Smoking and tobacco/nicotine status: never used tobacco/nicotine Physical Exam Const: COMMON NORMALS: no acute distress, average body habitus, patient oriented x3, no limitations, healthy appearing, alert and well nourished GENERAL APPEARANCE: cooperative ORIENTATION/CONSCIOUSNESS: Yes awake, Yes oriented to person, Yes oriented to place and Yes oriented to time HENMT: COMMON NORMALS: normocephalic, atraumatic and TM's normal bilaterally HEAD & SCALP: normal to inspection, normocephalic and atraumatic; no Marr's sign, no hematoma and no raccoon eyes FACE & SINUS: normal facial exam TYMPANIC MEMBRANE: TM's normal bilaterally MOUTH: other (no intraoral injuries noted) Eye: COMMON NORMALS: Equal, round and reactive pupils present and EOMs intact bilaterally GENERAL EYE: appearance normal, both eyes and all related structures and normal light reflex PUPIL: Yes Equal, round and reactive pupils present DIRECT OPHTHALMOSCOPY: Yes normal light reflex Neck/C-Spine: COMMON NORMALS: full ROM GENERAL: Yes normal visual inspection CERVICAL SPINE: Yes cervical ROM normal, No pain with cervical ROM, No Cervical spine tenderness, No step off deformity and No Paracervical muscle tenderness Chest: COMMONS NORMALS: normal inspection of the chest OTHER: TTP R ribs; no crepitus noted; lung sounds normal Resp: COMMON NORMALS: normal respiratory effort and clear to auscultation bilaterally AUSCULTATION: clear to auscultation bilaterally Cardio: COMMON NORMALS: regular rate and regular rhythm RATE: regular rate RHYTHM: regular rhythm GI: COMMON NORMALS: Normal to inspection, nondistended, normoactive bowel sounds present, Soft to palpation, non-tender, No hepatosplenomegaly present and no masses INSPECTION: Yes normal to inspection and No abdominal wall ecchymosis AUSCULTATION: Yes normoactive bowel sounds PALPATION: Yes Soft to palpation and Yes No hepatosplenomegaly present Back/Pelvis: COMMON NORMALS: thoracic and lumbar spine normal to inspection, no thoracic nor lumbar tenderness and thoraco-lumbar ROM normal Extremity: COMMON NORMALS: normal to inspection and full ROM GENERAL: Yes normal exam except as noted Neuro: JELANI COMA SCALE: document GCS findings Jelani coma scale eye opening: Spontaneous Jleani coma scale verbal response: Orientated Jelani coma scale motor response: Obey commands Jelani coma scale total score: 15 COMMON NORMALS: patient oriented x3, CN's II-XII intact bilaterally, moves all extremities, no focal motor deficits, no sensory deficits noted and gait normal SENSORIUM/ORIENTATION: Yes alert, Yes oriented to person, Yes oriented to place and Yes oriented to time SPEECH: speech normal GAIT: Yes Normal gait present Skin: COMMON NORMALS: no rashes or lesions noted GENERAL SKIN EXAM: no rashes or lesions noted TRAUMA: no lacerations or abrasions Course Vital Signs: Vital signs: Vital Signs Temperature 97.9 F 11/09/24 08:26 Pulse Rate 63 11/09/24 08:26 Respiratory Rate 16 11/09/24 08:26 Blood Pressure 123/72 11/09/24 08:26 Pulse Oximetry 98 11/09/24 08:26 Oxygen Delivery Me thod Room Air 11/09/24 08:26 MDM - Fall Medical Decision Making Patient is a nice 79-year-old female here after her dog caused her to fall onto her right side. Her only physical complaint at this time was right rib pain. No crepitus clinically. Normal lung sounds. CXR/R rib series obtained showing no acute fractures or pneumothorax. Patient will be allowed discharge with conservative treatment at home. Return to ED precautions discussed. Medical Records I reviewed the patient's medical records. Lab Data Radiology Impressions Ribs X-Ray 11/09/24 09:34 IMPRESSION: 1. No acute right rib fracture or pneumothorax. 2. No acute cardiopulmonary finding. All radiology interpretation(s) finalized by discharge Discharge Plan Discharge Patient Disposition: Home Clinical Impression: Fall Qualifiers: Encounter type: initial encounter Qualified Code(s): W19.XXXA - Unspecified fall, initial encounter Contusion of rib on right side Qualifiers: Encounter type: initial encounter Qualified Code(s): S29.8XXA - Other specified injuries of thorax, initial encounter Condition: Stable Prescriptions: No Action meloxicam [Mobic] 15 mg tablet 15 mg PO DAILY Qty: 30 0RF Rx Instructions: TAKE 1 TABLET DAILY cyclobenzaprine 10 mg tablet 10 mg PO TID PRN (Reason: muscle spasm) Qty: 90 0RF alendronate 70 mg tablet 70 mg PO Q7D Tylenol Extra Strength 500 mg Tablet See Rx Instructions .ROUTE .COMPLEX Rx Instructions: PRN carvedilol 3.125 mg tablet 6.25 mg PO DAILY rosuvastatin 20 mg tablet 20 mg PO DAILY 28 mg iron- 800 mcg Tablet 1 tab PO DAILY Naprosyn 500 mg tablet 500 mg PO BID PRN (Reason: pain) Qty: 20 0RF Discharge Orders: Discharge ED (Routine); Ordered 11/09/24 Ordered By: Marsha Saravia Referrals: Shadi,JALYN Lemus [Primary Care Provider, Nurse Practitioner] Patient Instructions: Rib Contusion (ED), Patient Portal & Najma Instructions Activity Restrictions/Additional Instructions: As we discussed, your x-ray does not show any acute rib fractures. We discussed conservative therapies for discomfort. You need to return to the emergency department for worsening or uncontrollable pain, shortness of breath or difficulty breathing, severe abdominal pain, or any other concerns you may have. I hope you begin to feel better soon. Print Language: Prydeinig Coding Level of Care Code ED Dispensary Attendant for Maki Gooden
[2024-11-09] MEDS: tetanus-dipt-pertussis 0.5 mL SDV IM (09:34)
--- NOTE | 2024-11-09 09:34 | XR_ITS ---
WS: [id number] Exam: XR ribs RT mn 3V w CXR1V [id number] Date/Time of Exam: 11/09/2024 9:34 AM Reason For Exam: fall/injury No the lungs are bilaterally clear. Normal cardiomediastinal silhouette. Several old LEFT rib fractures are noted. XR/XR ribs RT mn 3V w CXR1V [id number] IMPRESSION: 1. No acute right rib fracture or pneumothorax. 2. No acute cardiopulmonary finding.
== END 2024-11-09 10:44 | disposition home or self-care (01) ==
PROVIDERS: Emergency Provider Physician Assistant; PCP Nurse Practitioner Family
DX: S29.8XXA Other specified injuries of thorax, initial encounter (principal); W18.30XA Fall on same level, unspecified, initial encounter; Y93.K1 Activity, walking an animal
CPT/HCPCS: 71101; 90715; 99283